=== PATIENT | female | born 1990 | race African-American/Black ===

== ENCOUNTER 2017-07-24 00:03 | Emergency (ER) | payer BC ==
[~2017-07-24 00:03] MED LIST: MELO7.5T27 PO; NORC5TAB PO
[2017-07-24 00:07] VITALS: BP 121/58; PULSE 76; RESP 15; TEMP 98.2; O2SAT 100
--- NOTE | 2017-07-24 00:31 | PD ---
HPI Chief Complaint: Skin Problem Time Seen by Provider: 00:18 Travel History International Travel<30 days: No Contact w/Intl Traveler<30days: No Traveled to known affect area: No History of Present Illness HPI 27-year-old black female presents emergency department with complaints of a rash to her feet since going to [place] and engage in more sports in a jump house. The patient states that she noticed an area of irritation followed by pruritus and skin breakdown on the dorsums of both feet and in between her toes. She states that is very pruritic and irritating. She denies any known chemical contacts. No changes in her soap care products. No difficulty swallowing. No glossal edema. No shortness of breath. No other rashes. Symptoms are moderate. No alleviating factors. History Past Medical Histgory Medical History: Denies Significant Hx Tetanus Vaccination: < 5 Years LMP: 07/03/2017 Past Surgical History Surgical History: No Previous Surgery Social History Alcohol Use: Yes (SOCIALLY) Tobacco Use: Yes Allergies-Medications (Allergen,Severity, Reaction): Coded Allergies: No Known Allergies (Verified Adverse Reaction, Unknown, 07/24/17) Reported Meds & Prescriptions Reported Meds & Active Scripts Active No Active Prescriptions or Reported Medications Review of Systems General / Constitutional: No: Fever Eyes: No: Visual changes HENT: No: Headaches Cardiovascular: No: Chest Pain or Discomfort Respiratory: No: Shortness of Breath Gastrointestinal: No: Abdominal Pain Genitourinary: No: Dysuria Musculoskeletal: No: Pain Skin: Positive Rash, Positive Itching, Positive Dryness Neurologic: No: Weakness Psychiatric: No: Depression Endocrine: No: Polydipsia Hematologic/Lymphatic: No: Easy Bruising Physical Exam Narrative GENERAL: Well-developed, well-nourished in no acute distress. Nontoxic appearing. HEAD: Normocephalic, atraumatic. EYES: Pupils equal round and reactive. Extraocular motions intact. No scleral icterus. No injection or drainage. ENT: TMs clear without erythema. The external auditory canals clear. Nose: clear . Posterior pharynx is pink and moist. No tonsillar edema or exudate. Uvula midline. Airway patent. NECK: Trachea midline.Supple, nontender, moves head freely. No central bony tenderness or spasm. CARDIOVASCULAR: Regular rate and rhythm without murmurs, gallops, or rubs. RESPIRATORY: Clear to auscultation. Breath sounds equal bilaterally. No wheezes , rales, or rhonchi. GASTROINTESTINAL: Abdomen soft, non-tender, nondistended. No hepato-splenomegaly , or palpable masses. No guarding. EXTREMITIES: No clubbing, cyanosis, or edema. No joint tenderness, effusion, or edema noted. Examination of the dorsum of both feet reveal a mildly erythematous scaly dermatitis with some slight maceration between the toes. This includes the dorsum of the distal forefoot and toes. There is no ulceration or cellulitis. She has intact sensation good distal pulses. Good cap refill. BACK: Nontender without deformity or crepitance. No flank tenderness. Data Data Last Documented VS Vital Signs Date Time Temp Pulse Resp B/P (MAP) Pulse Ox O2 Delivery O2 Flow Rate FiO2 07/24/17 00:07 98.2 76 15 121/58 (79) 100 [facility] Medical Screen Exam Complete: Yes Emergency Medical Condition: No Differential Diagnosis MDM: High Differential diagnoses: Abscess, folliculitis, cellulitis, lymphangitis, abrasion, contact dermatitis tinea pedis, impetigo Narrative Course A medical screening exam was performed: At the time of evaluation the presenting medical condition was determined not to be of an emergent nature. The patient was given the option of receiving additional care, but declined. Patient was given options for additional community resources from which to obtain care. The Patient Has Been advised to seek medical attention for their presenting complaint. The patient has been advised to return to the ER at any time if an emergent condition develops. Primary Impression: Encounter for medical screening examination Scripts No Active Prescriptions or Reported Meds Condition: Gonzalo Mcqueen July 24, 2017 00:31
== END 2017-07-24 01:00 | disposition left against medical advice (07) ==
LOC: NEPD 00:03
DX: R21 Rash and other nonspecific skin eruption (principal)
CPT/HCPCS: 99281